=== PATIENT | male | born 2000 | race Two or more races ===

== ENCOUNTER 2019-10-21 12:15 | Emergency (ER) | payer BC, SELFPAY ==
--- NOTE | ~2019-10-21 | XR_ITS ---
EXAMINATION: XR wrist RT min 3V DATE: 10/21/2019 13:18 INDICATION: Right wrist pain TECHNIQUE: Posteroanterior, ulnar deviation, oblique, and lateral views of the right wrist were obtai bette. COMPARISON: None available FINDINGS: There is no fracture, dislocation, or subluxation. The bones and joint spaces are normal. T here is dorsal soft tissue swelling of the wrist. IMPRESSION: 1. Wrist soft tissue swelling without acute osseous abnormality. Reviewed, dictated and finalized at location A.
[2019-10-21 12:39] VITALS: BP 129/85; PULSE 85; RESP 16; TEMP 36.6; O2SAT 100
--- NOTE | 2019-10-21 13:01 | ED.UPPEXIN ---
HPI - Extremity Injury (Upper) General Chief Complaint: Extremity Injury, Upper Stated Complaint: right wrist pain Time Seen by Provider: 10/21/19 13:00 Source: patient and RN notes reviewed Mode of arrival: ambulatory Limitations: no limitations History of Present Illness HPI narrative: 19-year-old male presents with concern for right wrist pain. Reports prior to arrival he was doing quick rapid movements of his hand and felt a pop at the top of his hand reports pain, decreased range of motion. 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 Reports pain with wrist movement, not with digit movement. Reports a bump on the top of his wrist that is painful to touch. complaint: injury to: right and hand Other Extremity Injury: Right: hand Related Data Allergies Allergy/AdvReac Type Severity Reaction Status Date / Time No Known Allergies Allergy Unverified 12/28/18 13:41 Review of Systems Review of Systems: Narrative: CONSTITUTIONAL: Denies malaise, chills, sweats, or fever. CARDIOVASCULAR: Denies chest pain, palpitations, or edema. RESPIRATORY: Denies dyspnea. 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 There is no relevant family history pertinent to the presenting complaint Exam Narrative: Exam Narrative: GENERAL: Well-appearing, well-nourished, and in no acute distress. HEAD: Normocephalic, atraumatic. EYES: PERRLA, conjunctivae clear NECK: Supple. CHEST: Speaks in full sentences. No respiratory distress. HEART: Regular rate and rhythm. Normal and equal peripheral pulses. EXTREMITIES: Right wrist, hand, digits has normal strength no edema, normal range of motion. 5/5 strength with digit flexion and extension; 3/5 night forest resources professor strength. Normal sensation with sensitivity to light touch and pain. Palpable, tender nodule dorsal aspect of the wrist proximal to the third digit. No open wounds, no skin tenting, no devitalized tissue or atrophy, no trophic changes, no ecchymosis, alignment normal, no point tenderness, nearby joints and structures intact. Distal pulses palpable and equal bilaterally, skin warm, dry, pink. Capillary refill less than 3 seconds. Right hand and digits of hand have normal strength and sensation. 5/5 strength with digit flexion, extension. Range of motion normal. No clubbing, cyanosis, or edema noted. No tenderness. Skin intact. Normal digital cascade with flexion of fingers, median, ulnar and radial nerve intact. Normal sensation of each side of finger. Can perform 'okay' sign, 'cross over finger test of index and middle fingers' and 'thumbs up' sign. No scissoring. Normal thumb opposition. Good capillary refill and radial pulse. Distal capillary refill ?3 seconds. SKIN: Warm, dry, no rash. NEURO: Alert and oriented x3. PSYCH: Normal mood and affect Course Course Emergency Course: Patient is aware of diagnosis, understands and agrees to treatment plan. Anticipatory guidance given. Patient agrees to follow-up as directed and is aware of reasons to seek care at the emergency department. Portions of this record may have been created with voice recognition software Vital Signs Vital signs: Vital Signs Temperature 97.9 F 10/21/19 12:39 Pulse Rate 85 10/21/19 12:39 Respiratory Rate 16 10/21/19 12:39 Blood Pressure 129/85 10/21/19 12:39 Pulse Oximetry 100 10/21/19 12:39 Temperature 97.9 F 10/21/19 12:39 Pulse Rate 85 10/21/19 12:39 Respiratory Rate 16 10/21/19 12:39 Blood Pressure 129/85 10/21/19 12:39 Pulse Oximetry 100 10/21/19 12:39 Reviewed. Pt has been instructed to follow up with his primary care provider within the next week regarding his elevated blood pressure today. MDM -
== END 2019-10-21 13:38 | disposition home or self-care (01) ==
LOC: EXPCOLL 12:34
PROVIDERS: Emergency Provider Nurse Practitioner
DX: S63.591A Other specified sprain of right wrist, initial encounter (principal); X58.XXXA Exposure to other specified factors, initial encounter
CPT/HCPCS: 73110; 99213; G0463